=== PATIENT | female | born 1980 | race Caucasian/White ===

== ENCOUNTER 2019-02-14 19:55 | Emergency (ER) | payer OTHER ==
[~2019-02-14] VITALS: Ht 154.9 cm; Wt 66.2 kg
[~2019-02-14 19:55] MED LIST: LEVO125T7
[2019-02-14 19:59] VITALS: BP 145/76; PULSE 86; RESP 20; Ht 154.9 cm; Wt 66.2 kg
[2019-02-14] MEDS ORDERED: METHOCARBAMOL 750 MG TAB PO ONE (21:00)
[2019-02-14] MEDS ORDERED: DEXAMETHASONE 10 MG/ML 1 ML INJ IM ONE (21:00)
[2019-02-14] MEDS: KETOROLAC 30 MG INJ IM STA ×2 (21:07→21:58)
--- NOTE | 2019-02-14 23:49 | ERD ---
ER Documentation Chief Complaint Chief Complaint mech fall last night; pain on back and head HPI 38-year-old female past medical history of hypothyroidism presents for low back pain status post mechanical fall. States that she was in her car was doing some work and fell backwards hitting the bottom against the cement. She also states that she hit her head afterwards. She denies any loss of consciousness or vomiting. She states that the low back pain is 7 out of 10. She is able to ambulate with some pain. She took some Excedrin's with only mild relief. The pain is nonradiating. Described as sharp. The head pain is noted in the posterior side of the head. Otherwise no other modifying factors noted, no other treatments tried at home. ROS All systems reviewed and are negative except as per history of present illness. Medications Home Meds Reported Medications Levothyroxine Sodium* (Levothyroxine Sodium*) 125 Mcg Tablet 08/13/12 Allergies Allergies: Coded Allergies: No Known Allergy (Unverified , 08/13/12) PMhx/Soc History of Surgery: Yes () Anesthesia Reaction: No Hx Neurological Disorder: No Hx Respiratory Disorders: No Hx Cardiac Disorders: No Hx Psychiatric Problems: No Hx Alcohol Use: No Hx Substance Use: No Hx Tobacco Use: No Smoking Status: Never smoker FmHx Family History: No coronary disease Physical Exam Vitals Vital Signs Date Temp Pulse Resp B/P (MAP) Pulse Ox O2 O2 Flow FiO2 Time Delivery Rate 02/14/19 97.6 86 20 145/76 100 19:59 (99) Physical Exam Const: No acute distress Head: Atraumatic,, no depressed skull fracture noted posteriorly. No bruising noted Eyes: Normal Conjunctiva ENT: Normal External Ears, Nose and Mouth. Neck: Full range of motion. No meningismus. Resp: Clear to auscultation bilaterally Cardio: Regular rate and rhythm, no murmurs, peripheral pulses intact Abd: Soft, non tender, non distended. Normal bowel sounds Skin: No petechiae or rashes Back: No midline or flank tenderness, Ext: No cyanosis, or edema, bilateral upper and lower extremity muscle strength 5 out of 5 Neur: Awake and alert, bilateral upper and lower tremors sensation intact Psych: Normal Mood and Affect Results 24 hrs Laboratory Tests Test 02/14/19 20:57 POC Beta HCG, Qualitative NEGATIVE Current Medications Medications Dose Sig/Errol Start Time Status Last (Trade) Ordered Route PRN Stop Time Admin Dose Reason Admin Ketorolac 30 mg ONCE STAT 02/14/19 DC 02/14/19 Tromethamine IM 20:37 21:58 (Toradol) 02/14/19 20:38 750 mg ONCE ONCE 02/14/19 DC 02/14/19 Methocarbamol PO 21:00 20:58 (Robaxin) 02/14/19 21:01 10 mg ONCE ONCE 02/14/19 DC 02/14/19 Dexamethasone IM 21:00 21:01 (Decadron) 02/14/19 21:01 Procedures/MDM Medical Decision Making: Differential diagnosis includes but not limited to bone contusion, muscle arthritis, fracture, dislocation, muscle strain, ligamentous sprain Patient appeared well on physical exam. Patient was neurovascular intact ED course: Patient was given Toradol, Robaxin, Decadron Patient was ambulating and was neurovascular intact, therefore no imaging felt to be necessary Look for patient in the waiting room after her treatment and patient was not found. Therefore was unable to see if the patient's symptoms improved with treatment. Patient eloped Disclaimer: Inadvertent spelling and grammatical errors are likely due to EHR/dictation software use and do not reflect on the overall quality of patient care. Also, please note that the electronic time recorded on this note does not necessarily reflect the actual time of the patient encounter. Departure Diagnosis: Primary Impression: Low back pain Condition: KE Steele DO February 14, 2019 23:49
== END 2019-02-15 02:23 | disposition left against medical advice (07) ==
LOC: FTE 19:55
DX: M54.5 Low back pain (principal); E03.9 Hypothyroidism, unspecified
CPT/HCPCS: 81025; 96372; J1100; J1885; Z7502; Z7610

== ENCOUNTER 2019-02-17 12:32 | Emergency (ER) | payer OTHER ==
[~2019-02-17] VITALS: Ht 147.3 cm; Wt 65.0 kg
[2019-02-17 13:29] VITALS: BP 151/95; PULSE 78; RESP 16; Ht 147.3 cm; Wt 65.0 kg
--- NOTE | 2019-02-17 13:41 | EN ---
Date/Time of Note Date/Time of Note DATE: 02/17/19 TIME: 13:40 ER Progress Note MSE in ED 3. Patient fell 3 days ago. X-rays are deferred initially. Requesting x-rays for low back and coccyx pain. Radiologic studies as well as urine hCG initiated in ED 3 via provider in triage. Patient otherwise well- appearing. JANEY BEGUM MD February 17, 2019 13:41
[2019-02-17] MEDS ORDERED: NAPR-985 PO (14:41)
--- NOTE | 2019-02-17 15:42 | ERD ---
ER Documentation Chief Complaint Chief Complaint READMITT FOR LOW BACK PAIN--REQUESTING XRAY HPI 38-year-old female presenting with lower back pain. Patient was seen here few days ago after she fell however did not have x-rays and states her pain is continued so she is requesting x-rays at this time. She denies any numbness or tingling down her legs. Denies any problems having urination or bowel movement. Has not taken medications for symptoms. Denies any medical problems. NKDA. Surgical history denies. Social history denies ROS All systems reviewed and are negative except as per history of present illness. Medications Home Meds Active Scripts Naproxen* (Naprosyn*) 500 Mg Tablet, 500 MG PO BID PRN for PAIN AND/OR INFLAMMATION, #30 TAB Prov:CECIL YADAV PA-C 02/17/19 Reported Medications Levothyroxine Sodium* (Levothyroxine Sodium*) 125 Mcg Tablet 08/13/12 Allergies Allergies: Coded Allergies: No Known Allergy (Unverified , 08/13/12) PMhx/Soc History of Surgery: Yes () Anesthesia Reaction: No Hx Neurological Disorder: No Hx Respiratory Disorders: No Hx Cardiac Disorders: No Hx Psychiatric Problems: No Hx Alcohol Use: No Hx Substance Use: No Hx Tobacco Use: No Smoking Status: Never smoker FmHx Family History: No diabetes, No coronary disease, No other Physical Exam Vitals Vital Signs Date Temp Pulse Resp B/P (MAP) Pulse Ox O2 O2 Flow FiO2 Time Delivery Rate 02/17/19 97.3 78 16 151/95 98 13:29 (113) Physical Exam GENERAL: The patient is well-appearing, well-nourished, in no acute distress CHEST: Clear to auscultation bilaterally. There are no rales, wheezes or rhonchi. HEART: Regular rate and rhythm. No murmurs, clicks, rubs or gallops. No S3 or S4. BACK: No midline or flank tenderness. Tender to palpation over the lower lumbar spine extending into the sacrum. EXTREMITIES: Equal pulses bilaterally. There is no peripheral clubbing, cyanosis or edema. No focal swelling or erythema. Full range of motion. Grossly neurovascularly intact. NEUROLOGIC: Alert and oriented. Cranial nerves II through XII intact. Motor strength in all 4 extremities with 5 out of 5 strength. Sensation grossly intact. Normal speech and gait. SKIN: There is no apparent rash or petechiae. The skin is warm and dry. Procedures/MDM DIAGNOSTIC IMAGING REPORT Patient: JOE BROOKE : 1980 Age: 38 Sex: F MR #: [id number] [facility] #: [id number] DOS: 02/17/19 1339 Ordering MD: JANEY BEGUM MD Location: [facility] Room/Bed: PROCEDURE: XR Lumbar Spine. CLINICAL INDICATION: back pain TECHNIQUE: AP and lateral of the lumbar spine were obtained. COMPARISON: No prior studies are available for comparison. FINDINGS: There is normal vertebral mineralization. There is minimal levoscoliosis.. No fracture or subluxation is seen. The disc spaces are normal in appearance. The posterior elements are unremarkable. The soft tissues appear normal. RPTAT: AA IMPRESSION: Minimal levoscoliosis. Otherwise unremarkable. MDM: 38-year-old female presenting with back pain. Patient likely sustained contusion. I have low suspicion for acute fracture dislocation. I do not feel further imaging is indicated. Patient exam is within normal limits. Patient is discharged with strict ER precautions and told to follow-up with primary care within 1 to 2 days for close evaluation. Patient is told symptoms change or worsen to return the ER. All questions answered at discharge Departure Diagnosis: Primary Impression: Back pain Condition: Stable Patient Instructions: Contusion, Coccyx/Sacrum Referrals: [facility] YOU HAVE RECEIVED A MEDICAL SCREENING EXAM AND THE RESULTS INDICATE THAT YOU DO NOT HAVE A CONDITION THAT REQUIRES URGENT TREATMENT IN THE EMERGENCY DEPARTMENT. FURTHER EVALUATION AND TREATMENT OF YOUR CONDITION CAN WAIT UNTIL YOU ARE SEEN IN YOUR DOCTORS OFFICE WITHIN THE NEXT 1-2 DAYS. IT IS YOUR RESPONSIBILITY TO MAKE AN APPOINTMENT FOR FOLOW-UP CARE. IF YOU HAVE A PRIMARY DOCTOR --you should call your primary doctor and schedule an appointment IF YOU DO NOT HAVE A PRIMARY DOCTOR YOU CAN CALL OUR PHYSICIAN REFERRAL HOTLINE AT IF YOU CAN NOT AFFORD TO SEE A PHYSICIAN YOU CAN CHOSE FROM THE FOLLOWING [facility] [address] [facility] [address] [facility] [facility] [address] [facility] [address] [facility] [address] [facility]. [facility] [address] Additional Instructions: FOLLOW UP WITH YOUR PRIMARY CARE PHYSICIAN TOMORROW.Return to this facility if you are not improving as expected. CECIL YADAV PA-C February 17, 2019 15:42
== END 2019-02-17 15:01 | disposition home or self-care (01) ==
LOC: FTE 12:32
DX: M54.5 Low back pain (principal)
CPT/HCPCS: 72100; Z7502